=== PATIENT | female | born 1935 | race Caucasian/White ===

== ENCOUNTER 2016-09-04 06:56 | Day surgery (SDC) | payer MEDICARE, BC ==
[2016-09-04] VITALS (8 sets, daily range): BP systolic 95–191; BP diastolic 41–96; PULSE 63–98; TEMP 97.7
[~2016-09-04] VITALS: Ht 167.6 cm; Wt 81.8 kg
[~2016-09-04 06:56] MED LIST: ADCIRCA20 MG PO; ADVIL200 MG PO; ASPIRIN 81M81 MG/TA2 PO; BETAPACE 80MG80 MG PO; CALCIUM 600-D 61 TAB PO; FLOVENT 44MCG I13 GM IH; HCTZ 25MG TAB25 MG PO; K-DUR 10 MEQ T10 MEQ PO; LASIX 40MG TABL40 MG PO; LETAIRIS5 MG PO; LOPRESSOR 225 MG/TAB PO; LOPRESSOR 550 MG/TAB PO; MIRALAX PA17 GM/Dose PO; NASACORT AQ N16.5 GM NS; OMEGA-3 FISH1000 MG PO; PRINIVIL40 MG PO; REVATIO20 MG PO; SYNTHROID0.112 MG/T PO; THERATEARS 0.60.6 ML OP; TRAVATAN Z 2.52.5 ML OD; VENTOLIN0.09 MG IH; VITAMIN D32000 IU PO; XARELTO20 MG PO
[2016-09-04 08:35] LABS: ARTERIAL BLD GAS O2 SATURATION 92.6 % (92-100); ARTERIAL BLD GAS TCO2 CT 31.1; ARTERIAL BLOOD GAS BASE EXCESS 4.8 (-2-2); ARTERIAL BLOOD GAS HCO3 29.7 meq/L (22-26); ARTERIAL BLOOD GAS PHT 7.44 C (7.35-7.45); ARTERIAL BLOOD GAS PO2 65.8 mmHg (80-100); ARTERIAL BLOOD GAS PO2T 65.8 (80-100); ARTERIAL BLOOD GAS pH 7.44 (7.35-7.45); OXYHEMOGLOBIN 91.6 %
[2016-09-04 08:36] LABS: ALLEN TEST YES; ALLENS TEST RESULT PASS; ATS? YES
[2016-09-04] MEDS ORDERED: ASPIRIN 81M81 MG/TA2 PO (08:51)
[2016-09-04] MEDS ORDERED: FLONASEALLERGY NS (08:52)
[2016-09-04] MEDS ORDERED: LASIX 40MG TABL40 MG PO (08:52)
[2016-09-04] MEDS ORDERED: MIRALAX PA17 GM/Dose PO (08:53)
[2016-09-04] MEDS ORDERED: TIROSINT125 MC1 PO (08:53)
[2016-09-04] MEDS ORDERED: PRIL40 PO (08:54)
[2016-09-04] MEDS ORDERED: OXYGEN (08:58)
[2016-09-04] MEDS ORDERED: REFRESH PM1 OI1 OP (08:59)
[2016-09-04] MEDS ORDERED: REVATIO20 MG PO (09:00)
[2016-09-04] MEDS ORDERED: [UNRECOGNIZED DRUG - OTHER] OP (09:01)
[2016-09-04] MEDS ORDERED: ALDACTONE 25MG25 M1 PO (09:05)
[2016-09-04] MEDS ORDERED: STIOLTO RESPIMAT4 GM IH (09:06)
[2016-09-04] MEDS ORDERED: RESTORIL 1515 MG/CAP PO (09:07)
[2016-09-04] MEDS ORDERED: TIAZAC120 MG PO (09:07)
[2016-09-04] MEDS ORDERED: TRAVATAN Z 5 ML5 ML OS (09:09)
[2016-09-04] MEDS ORDERED: TRILOGY IH (09:10)
[2016-09-04] MEDS ORDERED: MASON NATURAL2000 IU PO (09:11)
[2016-09-04] MEDS ORDERED: VITAMINC1000TA PO (09:12)
[2016-09-04] MEDS ORDERED: ZAROXOLYN 2.52.5 MG PO (09:13)
[2016-09-04] MEDS ORDERED: LIDO2%JEL30 TOP (11:47)
[2016-09-04] MEDS ORDERED: NORCO 325 MG-51 TAB PO (11:48)
== END 2016-09-04 14:05 | disposition home or self-care (01) ==
LOC: SDCO 06:56
PROVIDERS: Nurse Anesthetist, Certified Registered
DX: Z86.010 Personal history of colon polyps (principal); D12.0 Benign neoplasm of cecum; K64.8 Other hemorrhoids; I27.2 Other secondary pulmonary hypertension; R06.89 Other abnormalities of breathing; I48.2 Chronic atrial fibrillation; E03.9 Hypothyroidism, unspecified; J44.9 Chronic obstructive pulmonary disease, unspecified; Z85.850 Personal history of malignant neoplasm of thyroid; Z85.9 Personal history of malignant neoplasm, unspecified; Z96.651 Presence of right artificial knee joint; N60.19 Diffuse cystic mastopathy of unspecified breast; I44.7 Left bundle-branch block, unspecified; I10 Essential (primary) hypertension; G47.33 Obstructive sleep apnea (adult) (pediatric); I42.9 Cardiomyopathy, unspecified; M17.11 Unilateral primary osteoarthritis, right knee
CPT/HCPCS: J1100; J1885; J2405; J2704; J3010; J7120

== ENCOUNTER 2016-09-15 01:50 | Inpatient (IN) | payer MEDICARE, BC ==
[2016-09-15] VITALS (374 sets, daily range): BP systolic 90–120; BP diastolic 50–104; PULSE 87–145; TEMP 97.2–98.8; O2SAT 83–100
[~2016-09-15] VITALS: Ht 167.6 cm; Wt 93.8 kg
[~2016-09-15 01:50] MED LIST changes: +ALDACTONE 25MG25 M1 PO; +FLONASEALLERGY NS; +LIDO2%JEL30 TOP; +MASON NATURAL2000 IU PO; +NORCO 325 MG-51 TAB PO; +OXYGEN; +PRIL40 PO; +REFRESH PM1 OI1 OP; +RESTORIL 1515 MG/CAP PO; +STIOLTO RESPIMAT4 GM IH; +TIAZAC120 MG PO; +TIROSINT125 MC1 PO; +TRAVATAN Z 5 ML5 ML OS; +TRILOGY IH; +VITAMINC1000TA PO; +ZAROXOLYN 2.52.5 MG PO; +[UNRECOGNIZED DRUG - OTHER] OP
[2016-09-15 02:45] LABS: HEMATOCRIT 22.2 % (37.0-47.0); HEMOGLOBIN 7.3 g/dl (12.5-16.0); MEAN CELL VOLUME 90 fl (80.0-100.0); MEAN CORPUSCULAR HEMOGLOBIN 30 pg (27.0-31.0); MEAN CORPUSCULAR HGB CONC 33 g/dl (33.0-37.0); MEAN PLATELET VOLUME 9.3 fl (7.4-10.4); PLATELET COUNT 200 K/mm3 (130-400); RED BLOOD COUNT 2.46 M/mm3 (4.10-5.30); REDCELL DISTRIBUTION WIDTH-CV 15.3 % (11.5-14.5)
[2016-09-15 02:46] LABS: WHITE BLOOD COUNT 20.7 K/mm3 (4.8-10.8)
[2016-09-15 02:49] LABS: INR 1.5 (0.8-3.0); PROTHROMBIN TIME 16.4 SECONDS (9.7-12.8)
[2016-09-15 02:52] LABS: PARTIAL THROMBOPLASTIN TIME 25.6 SECONDS (26.0-37.0)
[2016-09-15 02:56] LABS: ADJUSTED CALCIUM 8.6 mg/dL (8.4-10.2); ALBUMIN 1.8 gm/dL (3.5-5.0); BILIRUBIN,TOTAL 0.5 mg/dL (0.0-1.0); CALCIUM 6.8 mg/dL (8.4-10.2); CREATININE, serum 0.92 mg/dL (0.52-1.25); POTASSIUM 3.9 mmol/L (3.4-5.0); TOTAL PROTEIN 3.5 gm/dL (6.4-8.2)
[2016-09-15 08:13] LABS: HEMATOCRIT 32.2 % (37.0-47.0); HEMOGLOBIN 10.6 g/dl (12.5-16.0)
[2016-09-15 09:44] LABS: ARTERIAL BLD GAS O2 SATURATION 97.2 % (92-100); ARTERIAL BLD GAS TCO2 CT 21.3; ARTERIAL BLOOD GAS BASE EXCESS -5.7 (-2-2); ARTERIAL BLOOD GAS HCO3 20.1 meq/L (22-26); ARTERIAL BLOOD GAS PO2 105.8 mmHg (80-100); ARTERIAL BLOOD GAS pH 7.31 (7.35-7.45); OXYHEMOGLOBIN 96.2 %
[2016-09-15 09:45] LABS: ALLEN TEST YES; ALLENS TEST RESULT PASS; ATS? YES
[2016-09-15 10:54] LABS: HEMOGLOBIN 9.5 g/dl (12.5-16.0)
[2016-09-15 10:55] LABS: HEMATOCRIT 28.6 % (37.0-47.0)
[2016-09-15 13:50] LABS: ARTERIAL BLD GAS O2 SATURATION 96.5 % (92-100); ARTERIAL BLD GAS TCO2 CT 22.8; ARTERIAL BLOOD GAS BASE EXCESS -4.1 (-2-2); ARTERIAL BLOOD GAS HCO3 21.5 meq/L (22-26); ARTERIAL BLOOD GAS PO2 95.4 mmHg (80-100); ARTERIAL BLOOD GAS pH 7.33 (7.35-7.45); OXYHEMOGLOBIN 95.6 %
[2016-09-15 13:51] LABS: ALLEN TEST YES; ALLENS TEST RESULT PASS; ATS? YES
[2016-09-15 14:23] LABS: HEMATOCRIT 27.1 % (37.0-47.0); HEMOGLOBIN 9.1 g/dl (12.5-16.0)
[2016-09-15 14:27] LABS: PH 5 (5-8); SQUAMOUS EPITHELIAL 0-2 /hpf; URINE APPEARANCE Hazy; URINE BACTERIA Rare /hpf; URINE BILIRUBIN Negative (NEGATIVE); URINE BLOOD Negative (NEGATIVE); URINE COLOR Yellow; URINE GLUCOSE Negative (NEGATIVE); URINE KETONE Negative (NEGATIVE); URINE UROBILINOGEN Negative (NEGATIVE)
[2016-09-15 18:30] LABS: HEMATOCRIT 27.8 % (37.0-47.0); HEMOGLOBIN 9.3 g/dl (12.5-16.0)
[2016-09-15 22:11] LABS: HEMATOCRIT 25.7 % (37.0-47.0); HEMOGLOBIN 8.6 g/dl (12.5-16.0)
[2016-09-16] VITALS (433 sets, daily range): BP systolic 81–138; BP diastolic 36–73; PULSE 78–110; TEMP 97.5–99.1; O2SAT 78–100
[2016-09-16 05:14] LABS: ADD PATHOLOGY DIFF REVIEW NO
[2016-09-16 05:17] LABS: MEAN CELL VOLUME 90 fl (80.0-100.0); MEAN CORPUSCULAR HGB CONC 34 g/dl (33.0-37.0); MEAN PLATELET VOLUME 9.4 fl (7.4-10.4); PLATELET COUNT 176 K/mm3 (130-400); RED BLOOD COUNT 2.53 M/mm3 (4.10-5.30); REDCELL DISTRIBUTION WIDTH-CV 16.1 % (11.5-14.5)
[2016-09-16 05:18] LABS: HEMATOCRIT 22.8 % (37.0-47.0); HEMOGLOBIN 7.7 g/dl (12.5-16.0); MEAN CORPUSCULAR HEMOGLOBIN 30 pg (27.0-31.0); WHITE BLOOD COUNT 28.2 K/mm3 (4.8-10.8)
[2016-09-16 05:22] LABS: INR 1.2 (0.8-3.0); PROTHROMBIN TIME 13.8 SECONDS (9.7-12.8)
[2016-09-16 05:30] LABS: BAND 1 % (0-10); NEUTROPHILS 82 % (42.0-75.2); TOTAL CELLS COUNTED 100
[2016-09-16 05:31] LABS: ANISOCYTOSIS 1+; POLYCHROMASIA 1+; ROULEAUX 2+; TOXIC GRANULATION PRESENT
[2016-09-16 05:41] LABS: ADJUSTED CALCIUM 9.3 mg/dL (8.4-10.2); ALBUMIN 2.1 gm/dL (3.5-5.0); BILIRUBIN,TOTAL 0.6 mg/dL (0.0-1.0); CALCIUM 7.8 mg/dL (8.4-10.2); CREATININE, serum 0.96 mg/dL (0.52-1.25); MAGNESIUM 1.6 mg/dL (1.6-2.3); POTASSIUM 4.1 mmol/L (3.4-5.0)
[2016-09-16 12:18] LABS: HEMATOCRIT 22.5 % (37.0-47.0); HEMOGLOBIN 7.5 g/dl (12.5-16.0)
[2016-09-16 19:16] LABS: HEMATOCRIT 23.6 % (37.0-47.0); HEMOGLOBIN 7.7 g/dl (12.5-16.0)
[2016-09-17] VITALS (17 sets, daily range): BP systolic 78–118; BP diastolic 33–86; PULSE 75–106; TEMP 97.4–98.4
[2016-09-17 00:21] LABS: HEMATOCRIT 20.8 % (37.0-47.0); HEMOGLOBIN 7.1 g/dl (12.5-16.0)
[2016-09-17 05:51] LABS: ADD PATHOLOGY DIFF REVIEW NO
[2016-09-17 05:56] LABS: MEAN CELL VOLUME 92 fl (80.0-100.0); MEAN CORPUSCULAR HGB CONC 33 g/dl (33.0-37.0); MEAN PLATELET VOLUME 9.4 fl (7.4-10.4); PLATELET COUNT 176 K/mm3 (130-400); RED BLOOD COUNT 2.15 M/mm3 (4.10-5.30); REDCELL DISTRIBUTION WIDTH-CV 16.5 % (11.5-14.5)
[2016-09-17 05:57] LABS: MEAN CORPUSCULAR HEMOGLOBIN 30 pg (27.0-31.0)
[2016-09-17 05:58] LABS: HEMATOCRIT 19.8 % (37.0-47.0); HEMOGLOBIN 6.5 g/dl (12.5-16.0)
[2016-09-17 06:06] LABS: CALCIUM 7.7 mg/dL (8.4-10.2); CREATININE, serum 0.85 mg/dL (0.52-1.25); MAGNESIUM 1.9 mg/dL (1.6-2.3); POTASSIUM 3.7 mmol/L (3.4-5.0)
[2016-09-17 06:18] LABS: ANISOCYTOSIS 2+; BAND 17 % (0-10); HYPOCHROMIA 1+; MYELOCYTE 2 % (0-0); NEUTROPHILS 54 % (42.0-75.2); PLATELET ESTIMATE NORMAL (NORMAL); TOTAL CELLS COUNTED 100
[2016-09-17 16:33] LABS: HEMATOCRIT 26.5 % (37.0-47.0); HEMOGLOBIN 8.8 g/dl (12.5-16.0)
[2016-09-17 22:12] LABS: HEMATOCRIT 26.4 % (37.0-47.0); HEMOGLOBIN 8.9 g/dl (12.5-16.0)
[2016-09-18] VITALS (7 sets, daily range): BP systolic 84–123; BP diastolic 41–54; PULSE 76–97; TEMP 97.4–98.2
[2016-09-18 06:53] LABS: MEAN CELL VOLUME 91 fl (80.0-100.0); MEAN CORPUSCULAR HGB CONC 33 g/dl (33.0-37.0); MEAN PLATELET VOLUME 9.5 fl (7.4-10.4); PLATELET COUNT 160 K/mm3 (130-400); RED BLOOD COUNT 2.72 M/mm3 (4.10-5.30); REDCELL DISTRIBUTION WIDTH-CV 16.6 % (11.5-14.5); WHITE BLOOD COUNT 18.5 K/mm3 (4.8-10.8)
[2016-09-18 06:56] LABS: HEMATOCRIT 24.8 % (37.0-47.0); HEMOGLOBIN 8.2 g/dl (12.5-16.0); MEAN CORPUSCULAR HEMOGLOBIN 30 pg (27.0-31.0)
[2016-09-18 06:57] LABS: ADD PATHOLOGY DIFF REVIEW NO
[2016-09-18 07:00] LABS: CALCIUM 7.8 mg/dL (8.4-10.2); CREATININE, serum 0.73 mg/dL (0.52-1.25); POTASSIUM 3.5 mmol/L (3.4-5.0)
[2016-09-18 07:23] LABS: BAND 7 % (0-10); MYELOCYTE 4 % (0-0); NEUTROPHILS 59 % (42.0-75.2); PLATELET ESTIMATE NORMAL (NORMAL); TOTAL CELLS COUNTED 100
[2016-09-18 07:24] LABS: ANISOCYTOSIS 1+; HYPOCHROMIA 2+
[2016-09-18] MEDS ORDERED: FERROUS SU325 MG/TAB PO (12:30)
[2016-09-19 03:50] VITALS: BP 100/55; PULSE 83; TEMP 98
[2016-09-19 03:57] VITALS: BP 100/55; PULSE 81; TEMP 98
[2016-09-19 06:39] LABS: MEAN CELL VOLUME 92 fl (80.0-100.0); MEAN CORPUSCULAR HGB CONC 33 g/dl (33.0-37.0); MEAN PLATELET VOLUME 9.1 fl (7.4-10.4); PLATELET COUNT 164 K/mm3 (130-400); RED BLOOD COUNT 2.78 M/mm3 (4.10-5.30); REDCELL DISTRIBUTION WIDTH-CV 16.7 % (11.5-14.5); WHITE BLOOD COUNT 16.6 K/mm3 (4.8-10.8)
[2016-09-19 06:44] LABS: HEMATOCRIT 25.6 % (37.0-47.0); HEMOGLOBIN 8.5 g/dl (12.5-16.0); MEAN CORPUSCULAR HEMOGLOBIN 31 pg (27.0-31.0)
[2016-09-19 06:45] LABS: ADD PATHOLOGY DIFF REVIEW NO
[2016-09-19 07:16] LABS: ANISOCYTOSIS 1+; BAND 7 % (0-10); HYPOCHROMIA 1+; METAMYELOCYTE 1 % (0-0); MYELOCYTE 1 % (0-0); NEUTROPHILS 57 % (42.0-75.2); PLATELET ESTIMATE NORMAL (NORMAL); TOTAL CELLS COUNTED 100
[2016-09-19 07:19] VITALS: BP 100/45; PULSE 82; TEMP 97
[2016-09-19 11:09] VITALS: BP 110/46; PULSE 61; TEMP 98.9
[2016-09-19 15:17] VITALS: BP 112/47; PULSE 90; TEMP 98.7
== END 2016-09-19 15:37 | disposition home or self-care (01) | DRG 377 ==
LOC: COL.ER 01:50 → ICU 02:46 → COL.ER 02:46 → ICU 02:46 → MEDICAL 09-16 14:29 → ICU 09-16 14:29 → MEDICAL 09-19 15:37
PROVIDERS: Internal Medicine; Internal Medicine Pulmonary Disease; Nurse Practitioner Family; Surgery
PROC: 02HV33Z Insertion of Infusion Device into Superior Vena Cava, Percutaneous Approach (ICD-10-PCS; 2016-09-15)
PROC: 0DJD8ZZ Inspection of Lower Intestinal Tract, Via Natural or Artificial Opening Endoscopic (ICD-10-PCS; principal; 2016-09-15 03:45)
PROC: 0W3P8ZZ Control Bleeding in Gastrointestinal Tract, Via Natural or Artificial Opening Endoscopic (ICD-10-PCS; 2016-09-15 03:45)
DX: K57.31 Diverticulosis of large intestine without perforation or abscess with bleeding (principal); T81.19XA Other postprocedural shock, initial encounter; J96.12 Chronic respiratory failure with hypercapnia; J44.9 Chronic obstructive pulmonary disease, unspecified; I48.2 Chronic atrial fibrillation; I10 Essential (primary) hypertension; G47.33 Obstructive sleep apnea (adult) (pediatric); I27.2 Other secondary pulmonary hypertension; E03.9 Hypothyroidism, unspecified
CPT/HCPCS: 99223; 99233-AI; A4315; C1751; J1100; J1644; J1940; J2270; J2370; J2405; J2543; J2704; J3010; J7030; J7050; J7512; P9016